=== PATIENT | female | born 1960 | race Caucasian/White ===

== ENCOUNTER 2018-04-22 11:18 | Emergency (ER) | payer BC, OTHER ==
[2018-04-22 11:27] VITALS: BP 122/82; PULSE 84; RESP 18; TEMP 98.2
[2018-04-22] MEDS ORDERED: predniSONE 50 MG TAB PO STA (11:41)
[2018-04-22] MEDS ORDERED: LORATADINE 10 MG TAB PO STA (11:41)
--- NOTE | 2018-04-22 11:47 | ED ---
General Adult HPI - General Chief complaint: Allergic Reaction Stated complaint: Allergic reaction Time Seen by Provider: 04/22/18 11:33 Source: patient, RN notes reviewed Mode of arrival: ambulatory Limitations: no limitations - History of Present Illness Initial comments: Patient is a pleasant 57-year-old female presenting to the emergency department with rash. Patient has had waxing and waning rash over the past several days. Patient states rash is mostly in the face. Patient states it is red and raised and itchy. Patient states there is also some itching of her scalp and arms. Patient has also noticed rash in her arms. Patient states rash is mild at this time. Patient questions if laundry soap is causing her symptoms. Patient is new to the area. - Related Data Previous Rx's Medication Instructions Recorded predniSONE 20 mg PO BID #10 tab 04/22/18 Allergies Allergy/AdvReac Type Severity Reaction Status Date / Time hydrocodone Allergy Nausea & Verified 04/22/18 11:27 Vomiting latex Allergy Anaphylaxis Verified 04/22/18 11:27 Penicillins Allergy Anaphylaxis Verified 04/22/18 11:27 Review of Systems ROS Statement: Those systems with pertinent positive or pertinent negative responses have been documented in the HPI. ROS Other: All systems not noted in ROS Statement are negative. Constitutional: Denies: fever, chills Eyes: Denies: eye pain ENT: Denies: ear pain Respiratory: Denies: cough, dyspnea Cardiovascular: Denies: chest pain Endocrine: Denies: fatigue Gastrointestinal: Denies: abdominal pain Genitourinary: Denies: dysuria Musculoskeletal: Denies: back pain Skin: Reports: rash Neurological: Reports: headache (Patient does have a mild headache). Denies: weakness Past Medical History Additional Past Medical History / Comment(s): hep c History of Any Multi-Drug Resistant Organisms: None Reported Past Surgical History: Section, Cholecystectomy, Tonsillectomy Past Psychological History: No Psychological Hx Reported Smoking Status: Current every day smoker Past Alcohol Use History: None Reported Past Drug Use History: None Reported General Exam Limitations: no limitations General appearance: alert, in no apparent distress Head exam: Present: atraumatic, normocephalic Eye exam: Present: normal appearance, PERRL ENT exam: Present: normal oropharynx Neck exam: Present: normal inspection. Absent: tenderness, meningismus Respiratory exam: Present: normal lung sounds bilaterally Cardiovascular Exam: Present: regular rate, normal rhythm GI/Abdominal exam: Present: soft. Absent: tenderness Extremities exam: Present: normal inspection, full ROM. Absent: tenderness, joint swelling Neurological exam: Present: alert Psychiatric exam: Present: normal affect, normal mood Skin exam: Present: other (Patient does have minimal raised rash with trace erythema of the forehead maxillary and chin region that is confluent. This seems to spare the lateral face. There is also trace amount of splotchy erythema of the upper arms bilateral.) Course Vital Signs 04/22/18 11:24 Temperature 98.2 F Pulse Rate 84 Respiratory 18 Rate Blood Pressure 122/82 O2 Sat by Pulse 98 Oximetry Disposition Clinical Impression: Urticaria Disposition: HOME SELF-CARE Condition: Stable Instructions: Urticaria (ED), Allergies (ED) Additional Instructions: [id number] Claritin as needed. Please follow-up with primary care physician in the next day or 2 for recheck, number provided. Return for difficulty in breathing, swelling of the throat or tongue or lips, joint swelling, joint pain, increased headaches, fevers, worsening symptoms or any other concerns. Prescriptions: predniSONE 20 mg PO BID #10 tab Is patient prescribed a controlled substance at d/c from ED?: No Referrals: My Fay MD [STAFF PHYSICIAN] - 1-2 days Time of Disposition: 11:47
== END 2018-04-22 12:33 | disposition home or self-care (01) ==
LOC: EC 11:18
DX: L50.9 Urticaria, unspecified (principal); F17.200 Nicotine dependence, unspecified, uncomplicated; Z86.19 Personal history of other infectious and parasitic diseases; Z88.5 Allergy status to narcotic agent; Z88.0 Allergy status to penicillin; Z91.040 Latex allergy status
CPT/HCPCS: 99282; J7512